=== PATIENT | male | born 1960 | race Hispanic/Latino ===

== ENCOUNTER → 2022-04-19 | Outpatient (CLI) | payer BC | END | disposition home or self-care (01) | LOC: SHCH 10:48 → EDUNIT# 11:00 | PROVIDERS: ATTEND Internal Medicine Cardiovascular Disease | DX: I51.7 Cardiomegaly (principal); R94.31 Abnormal electrocardiogram [ECG] [EKG] | CPT/HCPCS: 93306 ==